=== PATIENT | male | born 1990 | race Caucasian/White ===

== ENCOUNTER 2022-12-18 15:16 | Inpatient (IN) ==
[2022-12-18 19:09] LABS: Basophils # (auto) 0.03 K/uL (0-0.2); Basophils % (auto) 0.4 %; Eosinophils # (auto) 0.35 K/uL (0-0.50); Eosinophils % (auto) 4.1 %; Immature Granulocytes # (auto) 0.02 K/uL (0.01-0.20); Immature Granulocytes % (auto) 0.2 %; Lymphocytes # (auto) 2.23 K/uL (1.2-3.4); Lymphocytes % (auto) 26.4 %; Mean Corpuscular Hemoglobin 32.5 pg (25.0-34.0); Mean Corpuscular Hgb Conc 36.7 g/dL (32.0-36.0); Mean Corpuscular Volume 88.6 fL (80.0-100.0); Mean Platelet Volume 9.5 fL (9.4-12.4); Monocytes # (auto) 0.55 K/uL (0.11-0.59); Monocytes % (auto) 6.5 %; Neutrophils # (auto) 5.26 K/uL (1.40-6.50); Neutrophils % (auto) 62.4 %; Platelet Count 240 K/uL (130-400); RDW Coefficient of Variation 12.1 % (11.5-14.5); RDW Standard Deviation 39.3 fL (36.4-46.3); Red Blood Count 5.53 M/uL (4.70-6.10); White Blood Count 8.44 K/ul (4.8-10.8)
[2022-12-18 19:11] LABS: Appearance Urine Clear (Clear); Bilirubin Urine Negative (Negative); Blood Urine Negative (Negative); Color Urine Yellow; Glucose Urine UA Negative (Negative); Ketones Urine Trace (Negative); Leukocyte Esterase Urine Negative (Negative); Nitrite Urine Negative (Negative); Protein Urine Negative (Negative); Specific Gravity Urine 1.013 (1.000-1.030); Urobilinogen Urine Negative (Negative); pH Urine 7.5 (4.5-7.5)
[2022-12-18 19:22] LABS: Albumin Globulin Ratio 1.8 (0.9-2); Albumin Level 4.9 gm/dl (3.4-5.0); BUN Creatinine Ratio 11.6 (10-20); Bilirubin,Total 0.8 mg/dl (0.2-1.0); Calcium 9.7 mg/dl (8.6-10.3); Creatinine Clr Calc Pharmacy 121.5 ml/min; Est GFR (African American) 134.9 ml/min; Est GFR (Non-African American) 116.4 ml/min; Globulin 2.8 gm/dl (2.5-4.0); Potassium 4.4 mmol/L (3.5-5.1); Total Protein 7.7 gm/dl (6.0-8.3)
--- NOTE | 2022-12-18 20:58 | Emergency Department Note ---
Impression & Plan RLQ abdominal pain, Appendicitis ED Provider Note NAME: LEIDY RICE AGE: 32 SEX: M : 1990 ARRIVES VIA: Walk-In INFORMANT: [Patient] ED PROVIDER(S): [Adrien Bess MD] CHIEF COMPLAINT: Abdominal pain HISTORY OF PRESENT ILLNESS: The patient is a 32-year-old male presents with 2 days of an ache to the right lower quadrant. No pain radiation to the back. He has been having harder bowel movements lately, no diarrhea. No urinary complaints. No fever or nausea or vomiting. The patient has no history of abdominal surgery. He denies trauma to the abdomen. There is no cough or congestion, no shortness of breath. PMHx/PSHx: See Below SOCIAL HISTORY: See Below. PHYSICAL EXAM: GENERAL: Patient is in no acute distress. HEENT: No acute trauma, normocephalic atraumatic, mucous membranes moist, no nasal congestion. NECK: No stridor, no adenopathy, no meningismus, trachea is midline. LUNGS: Clear to auscultation bilaterally, no wheeze, no rhonchi, breath sounds equal. HEART: Without murmurs gallops or rubs, regular rate and rhythm. ABDOMEN: Soft, moderately tender in the right lower quadrant, no abdominal distention. EXTREMITIES: No cyanosis or edema, full range of motion of all the joints without pain or difficulty, no signs for acute trauma. NEUROLOGIC: Oriented x 3, no acute motor or sensory deficits, no focal weakness. SKIN: No rash, no jaundice, no diaphoresis. Groin: No hernia or discomfort with palpation in the groin. DIFFERENTIAL DIAGNOSIS: Appendicitis, diverticulitis, constipation, renal colic, UTI, musculoskeletal discomfort, viral illness, among others. EMERGENCY DEPARTMENT COURSE/PROCEDURES: Prior/Outside records reviewed: None. MEDICAL DECISION MAKING: There is no leukocytosis or concerning anemia. There is a normal platelet count. No renal failure or significant electrolyte abnormality. No concerning liver enzyme elevation. No evidence for pancreatitis. Urinalysis shows some ketones, no infection. Abdominal and pelvis CT shows evidence for acute appendicitis without perforation. On exam, the patient was tender in the right lower quadrant. He did not have peritonitis. He was not febrile or toxic. The patient did not require anything for pain, he was resting comfortably on the ED bed. I spoke to the patient about his findings, I did speak with case management, the on-call surgeon was consulted. DISPOSITION: Patient's presentation and findings warrant surgical consultation. Past Med/Surg History Medical History History of back problems Plantar fasciitis Surgical History (Updated 05/23/22 @ 12:56 by Jessy Steele, LIZBETH) H/O wisdom tooth extraction 2010 Family History (Updated 03/08/22 @ 16:53 by Megha Wong, LIZBETH) Other Unknown family medical history Social History Smoking Status: Current every day smoker Tobacco Type: Cigarettes packs per day: 0.3; Hx Alcohol Use: Yes Alcohol Intake Frequency: Monthly or Less Preferred Language: Frisian marital status: Single current occupational status: employed How many Children do You have: 0 Feels Safe at Home: Yes Diet: regular during the past year weight has: decreased > 10 lbs Allergies Allergies Allergy/AdvReac Type Severity Reaction Status Date / Time No Known Allergies Allergy Verified 03/08/22 15:13 Home Meds Home Medications Medication Instructions Recorded Confirmed cyclobenzaprine 5 mg tablet 5 mg PO TID PRN 05/23/22 Results & Data (ED) Vital Signs Vital Signs - 24 hr 12/18/22 15:34 12/18/22 20:53 Temperature 36.8 C Temperature Source Temporal Artery Scan Pulse Rate 83 Pulse Rate [Finger] 66 Pulse Rhythm [Finger] Regular Pulse Strength [Finger] Normal Respiratory Rate 18 18 Respiratory Effort / Characteristics Non-Labored Non-Labored Spontaneous Respiratory Depth Normal Normal Blood Pressure 132/82 Blood Pressure [Right Arm] 134/79 Blood Pressure Mean 98 Blood Pressure Mean [Right Arm] 97 Pulse Oximetry 97 98 Oxygen Delivery Method Room Air Room Air Sepsis Recent Fever Within 48 Hours No Sepsis New/Unexplained Change in Mental Status No Sepsis Action Taken by Nursing No Action Required Home Medications Current Medication List: was personally reviewed by me Laboratory Data Attestation: I reviewed the patient's lab results. 12/18/22 18:35 12/18/22 18:35 Lab Results 12/18/22 12/18/22 12/18/22 Range/Units 18:35 18:35 18:36 WBC 8.44 (4.8-10.8) K/ul RBC 5.53 (4.70-6.10) M/uL Hgb 18.0 (14.0-18.0) g/dl Hct 49.0 (42.0-52.0) % MCV 88.6 (80.0-100.0) fL MCH 32.5 (25.0-34.0) pg MCHC 36.7 H (32.0-36.0) g/dL RDW Std Deviation 39.3 (36.4-46.3) fL RDW Coeff of John 12.1 (11.5-14.5) % Plt Count 240 (130-400) K/uL MPV 9.5 (9.4-12.4) fL Immature Gran % (Auto) 0.2 % Neut % (Auto) 62.4 % Lymph % (Auto) 26.4 % Steele % (Auto) 6.5 % Eos % (Auto) 4.1 % Baso % (Auto) 0.4 % Neut # (Auto) 5.26 (1.40-6.50) K/uL Lymph # (Auto) 2.23 (1.2-3.4) K/uL Steele # (Auto) 0.55 (0.11-0.59) K/uL Eos # (Auto) 0.35 (0-0.50) K/uL Baso # (Auto) 0.03 (0-0.2) K/uL Immature Gran # (Auto) 0.02 (0.01-0.20) K/uL Sodium 137 (136-145) mmol/L Potassium 4.4 (3.5-5.1) mmol/L Chloride 105 (98-107) mmol/L Carbon Dioxide 27 (21-32) mmol/L Anion Gap 5 (3-11) BUN 10 (6-23) mg/dl Creatinine 0.86 (0.6-1.4) mg/dl Est Cr Clr Drug Dosing 121.5 ml/min Est GFR ( Amer) 134.9 ml/min Est GFR (Non-Af Amer) 116.4 ml/min BUN/Creatinine Ratio 11.6 (10-20) Glucose 84 (70-99(Fasting)) mg/dl Calcium 9.7 (8.6-10.3) mg/dl Total Bilirubin 0.8 (0.2-1.0) mg/dl AST 18 (13-39) U/L ALT 21 (7-52) U/L Alkaline Phosphatase 67 (34-104) U/L Total Protein 7.7 (6.0-8.3) gm/dl Albumin 4.9 (3.4-5.0) gm/dl Globulin 2.8 (2.5-4.0) gm/dl Albumin/Globulin Ratio 1.8 (0.9-2) Lipase 33 (11-82) U/L Urine Color Yellow Urine Appearance Clear (Clear) Urine pH 7.5 (4.5-7.5) Ur Specific [place] 1.013 (1.000-1.030) Urine Protein Negative (Negative) Urine Glucose (UA) Negative (Negative) Urine Ketones Trace H (Negative) Urine Blood Negative (Negative) Urine Nitrite Negative (Negative) Urine Bilirubin Negative (Negative) Urine Urobilinogen Negative (Negative) Ur Leukocyte Esterase Negative (Negative) Administered Medications Discontinued Medications Ioversol (Optiray 320 100ml) 91 ml IV ONCE ONE Stop: 12/18/22 21:02 Last Admin: 12/18/22 21:02 Dose: 91 ml Documented By: PLW Imaging Data Radiologist's Impression: Abdomen/Pelvis CT 12/18/22 19:20 CR Exam(s): CT ABDOMEN + PELVIS With Contrast IV Amt: 91 ml optiray 320 EXAM: CT Abdomen and Pelvis With Intravenous Contrast CLINICAL HISTORY: Reason for exam: RLQ abdominal pain. TECHNIQUE: Axial computed tomography images of the abdomen and pelvis with intravenous contrast. CTDI is 13.13 mGy and DLP is 628.4 mGy-cm. Automated exposure control was utilized for the study. A dose lowering technique was utilized adhering to the principles of ALARA. CONTRAST: Patient received 91 ml optiray 320 of IV contrast COMPARISON: No relevant prior studies available. FINDINGS: Lung bases: Unremarkable. No mass. No consolidation. ABDOMEN: Liver: Unremarkable. No mass. Gallbladder and bile ducts: Unremarkable. No calcified stones. No ductal dilation. Pancreas: Unremarkable. No mass. No ductal dilation. Spleen: Unremarkable. No splenomegaly. Adrenals: Unremarkable. No mass. Kidneys and ureters: 1.5 cm right upper pole renal hypodensity likely representing a cyst. 0.8 cm left upper pole renal hypodensity too small for the density characterization but also likely representing a cyst. Nonobstructing bilateral intrarenal calculi. Stomach and bowel: Diverticulosis without evidence of diverticulitis. No obstruction. PELVIS: Appendix: Small thickening and inflammatory change involving a dilated appendix in the right lower quadrant. No periappendiceal abscess. Bladder: Unremarkable. No mass. Reproductive: Unremarkable as visualized. ABDOMEN and PELVIS: Intraperitoneal space: Unremarkable. No free air. No significant fluid collection. Bones/joints: No acute fracture. No dislocation. Soft tissues: Unremarkable. Vasculature: Unremarkable. No abdominal aortic aneurysm. Lymph nodes: Unremarkable. No enlarged lymph nodes. IMPRESSION: Acute appendicitis. No periappendiceal abscess. Communications: Call Doctor Appendicitis Electronically signed by: Anil Diallo MD 12/18/22 21:33 PM Discharge Plan Visit Data Chief Complaint: Abdominal Pain Stated Complaint: ABD PAIN ED Provider: Adrien Bess Discharge Problem: RLQ abdominal pain, Appendicitis Patient Disposition: Being Evaluated by Surgeon Condition: Good Forms Stand Alone Forms: [facility] [employer] Prescriptions Prescriptions: No Action cyclobenzaprine 5 mg tablet 5 mg PO TID PRN Referrals Referrals: Piero Gleason [Primary Care Provider] -
[2022-12-18] MEDS ORDERED: OPTIRAY 320 100ml IV ONE (21:01)
--- NOTE | 2022-12-18 21:34 | CT Scan Report ---
Exam(s): CT ABDOMEN + PELVIS With Contrast IV Amt: 91 ml optiray 320 EXAM: CT Abdomen and Pelvis With Intravenous Contrast CLINICAL HISTORY: Reason for exam: RLQ abdominal pain. TECHNIQUE: Axial computed tomography images of the abdomen and pelvis with intravenous contrast. CTDI is 13.13 mGy and DLP is 628.4 mGy-cm. Automated exposure control was utilized for the study. A dose lowering technique was utilized adhering to the principles of ALARA. CONTRAST: Patient received 91 ml optiray 320 of IV contrast COMPARISON: No relevant prior studies available. FINDINGS: Lung bases: Unremarkable. No mass. No consolidation. ABDOMEN: Liver: Unremarkable. No mass. Gallbladder and bile ducts: Unremarkable. No calcified stones. No ductal dilation. Pancreas: Unremarkable. No mass. No ductal dilation. Spleen: Unremarkable. No splenomegaly. Adrenals: Unremarkable. No mass. Kidneys and ureters: 1.5 cm right upper pole renal hypodensity likely representing a cyst. 0.8 cm left upper pole renal hypodensity too small for the density characterization but also likely representing a cyst. Nonobstructing bilateral intrarenal calculi. Stomach and bowel: Diverticulosis without evidence of diverticulitis. No obstruction. PELVIS: Appendix: Small thickening and inflammatory change involving a dilated appendix in the right lower quadrant. No periappendiceal abscess. Bladder: Unremarkable. No mass. Reproductive: Unremarkable as visualized. ABDOMEN and PELVIS: Intraperitoneal space: Unremarkable. No free air. No significant fluid collection. Bones/joints: No acute fracture. No dislocation. Soft tissues: Unremarkable. Vasculature: Unremarkable. No abdominal aortic aneurysm. Lymph nodes: Unremarkable. No enlarged lymph nodes. IMPRESSION: Acute appendicitis. No periappendiceal abscess. Communications: Call Doctor Appendicitis Electronically signed by: Anil Diallo MD 12/18/22 21:33 PM
[2022-12-18] MEDS ORDERED: ONDANSETRON INJ 2 MG/ML 2 ML VIAL IV PRN (22:07)
[2022-12-18] MEDS ORDERED: MoRPHine SULFATE 4 MG/ML 1 ML CARP\\VIAL IV PRN (22:07)
--- NOTE | 2022-12-18 22:07 | History & Physical Report ---
Patient was discussed with the surgical PA. I agree with the plan. We will book for laparoscopic appendectomy Date of Service December 18, 2022 Assessment & Plan (1) Appendicitis: Plan: Due to the patient's clinical presentation and findings on imaging he will be admitted to the hospital proceeding as follows: Analgesics to be provided Antiemetics to be provided We will implement n.p.o. status We will hydrate him with IV fluids Serial labs will be followed We will initiate antibiotics in the form of Zosyn We have tentatively planned on performing an appendectomy on 12/19/[address] Roman. At the present time the patient is normotensive without tachycardia or fever. He also does not exhibit leukocytosis Additional recommendations be forthcoming based on operative findings, and his postoperative recovery thereafter SCDs will be used for DVT prevention, no chemical means due to planned surgery The patient be a level 1 full code History of Present Illness Chief Complaint: Abdominal pain Primary Care Provider: Piero Gleason This is a 32-year-old male who presented the emergency department secondary to abdominal pain. Patient notes that the abdominal pain began approximately 2 days ago across his lower abdomen. He does note that the pain is primarily concentrated in the right lower quadrant. He notes that the pain is worse with certain movements and when his abdomen is palpated. He does note that the pain is somewhat improved after he eats. He denies any nausea or vomiting. He denies any fevers, shakes, or chills. He denies any difficulty urinating. The patient does note that since his pain began he has been constipated and and he felt that this initially was the cause of his pain. As the pain did not dean over 2 days he did go [facility] where he was then referred to the emergency department for further evaluation. The patient reports that he does not have any history of prior abdominal surgeries. Since arrival to the hospital the patient has had labs and imaging which independent reviewed. Patient had a CT scan of the abdomen and pelvis. The patient was noted to have some thickening and inflammatory changes of the appendix which appeared to be dilated. There is no evidence of periappendiceal abscess. These findings were concerning for acute appendicitis. Labs include a CBC her white blood cell count, hemoglobin, hematocrit, platelet count were normal. Chemistry profile showed sodium, potassium, BUN, and creatinine were normal. There is no elevation of LFTs or lipase. A urinalysis was not indicative of infection. The patient says that he is an everyday smoker smoking nearly 1/2 pack cigarettes per day. He does state that he is active with his day-to-day life and does not get chest pain or shortness of breath with his daily activities. Since arrival to the emergency department he has not required any analgesics At the time of my interview the patient was resting comfortably in bed he was in no distress. Concerning past medical history he denies any medical problems Concerning past surgical history the patient says that he has had eye surgery and a cyst removed from the back of his neck Concerning social history he smokes 1/2 pack cigarettes per day Concerning family history he does not report any family history of premature coronary artery disease Allergies Allergy/AdvReac Type Severity Reaction Status Date / Time No Known Allergies Allergy Verified 03/08/22 15:13 Home Medications Medication Instructions Recorded Confirmed Type cyclobenzaprine 5 mg tablet 5 mg PO TID PRN 05/23/22 History Past Med/Surg History Medical History History of back problems Plantar fasciitis Surgical History H/O wisdom tooth extraction 2010 Family History Other Unknown family medical history Social History Smoking Status: Current every day smoker Tobacco Type: Cigarettes packs per day: 0.3; Hx Alcohol Use: Yes Alcohol Intake Frequency: Monthly or Less Preferred Language: Thai marital status: Single current occupational status: employed How many Children do You have: 0 Feels Safe at Home: Yes Diet: regular during the past year weight has: decreased > 10 lbs Review of Systems Constitutional: no fever and no chills Ear, Nose, Mouth, Throat: no hearing loss Respiratory: no cough and no dyspnea Cardiovascular: no chest pain Gastrointestinal: as per Subjective / HPI Genitourinary: no dysuria Musculoskeletal: no back pain Integumentary: no rash Neurologic: no localized weakness Physical Exam Constitutional: WD/WN, vitals as above Eyes: no conjunctival abnormality ENMT: Ears: no hearing impairment and no external ear abnormality Mouth: no oropharynx abnormality Neck: trachea midline Respiratory: normal respiratory effort, lungs clear to auscultation Cardiovascular: Rate/Rhythm: regular rate and regular rhythm Vessels: posterior tibial pulses present and radial pulses present Gastrointestinal (Abdomen): Abdomen is soft and nonrigid. It is nondistended. Bowel sounds are present. There is pain with deep palpation in the right lower quadrant McBurney's point. There is no rebound tenderness or guarding Musculoskeletal: No calf tenderness Skin: no rashes Neurologic: moves all extremities Results & Data Results & Data Vital Signs (Past 12 Hours) Vital Signs Temp Pulse Pulse Resp BP BP Pulse Ox 12/18/22 20:53 66 18 134/79 98 12/18/22 15:34 36.8 C 83 18 132/82 97 O2 Del Method 12/18/22 20:53 Room Air 12/18/22 15:34 Room Air PG Care Time/CCT Total # of Minutes Spent Total Time Spent with Patient: Total time spent is greater than 50% in coordination of care (as documented) at patient's floor/unit and/or counseling patient: Coding Level of Care Code 17851 INT INP/OBS CARE 3/75MIN Diagnoses Appendicitis K35.890 Acute appendicitis type: other Appendicitis type: acute appendicitis (1) Appendicitis Acute appendicitis type: other Appendicitis type: acute appendicitis Qualified Code(s): K35.890 - Other acute appendicitis without perforation or gangrene
[2022-12-18] MEDS ORDERED: PIPERACILLIN/TAZOBACTAM 4.5 GM/120 ML BAG IV STA (22:16)
[2022-12-18] MEDS: LACTATED RINGER'S 1,000 ML IV SCH (22:40)
[2022-12-18] MEDS: ACETAMINOPHEN 1,000 MG/100 ML VIAL IV PRN (22:41)
[2022-12-19] MEDS: PIPERACILLIN/TAZOBACTAM 4.5 GM in DEXTROSE 5% 100 ML IV SCH ×3 (04:20→19:45)
[2022-12-19] MEDS: LACTATED RINGER'S 1,000 ML IV SCH ×3 (05:41→16:51)
[2022-12-19 06:29] LABS: Basophils # (auto) 0.03 K/uL (0-0.2); Basophils % (auto) 0.5 %; Eosinophils # (auto) 0.26 K/uL (0-0.50); Eosinophils % (auto) 4.6 %; Hemoglobin 16.2 g/dl (14.0-18.0); Immature Granulocytes # (auto) 0.01 K/uL (0.01-0.20); Immature Granulocytes % (auto) 0.2 %; Lymphocytes # (auto) 1.37 K/uL (1.2-3.4); Lymphocytes % (auto) 24.3 %; Mean Corpuscular Hemoglobin 32.3 pg (25.0-34.0); Mean Corpuscular Hgb Conc 36.8 g/dL (32.0-36.0); Mean Corpuscular Volume 87.8 fL (80.0-100.0); Mean Platelet Volume 9.5 fL (9.4-12.4); Monocytes # (auto) 0.51 K/uL (0.11-0.59); Neutrophils # (auto) 3.46 K/uL (1.40-6.50); Neutrophils % (auto) 61.4 %; Platelet Count 216 K/uL (130-400); RDW Coefficient of Variation 11.8 % (11.5-14.5); Red Blood Count 5.01 M/uL (4.70-6.10); White Blood Count 5.64 K/ul (4.8-10.8)
[2022-12-19 06:42] LABS: Est GFR (African American) 134.9 ml/min; Est GFR (Non-African American) 116.4 ml/min
[2022-12-19 06:43] LABS: BUN Creatinine Ratio 11.6 (10-20); Creatinine Clr Calc Pharmacy 121.5 ml/min
--- NOTE | 2022-12-19 08:18 | Anesthesiology Consultation ---
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 Surgery Operation Date: 12/19/22 08:50 Proposed Procedures p Laparoscopic Appendectomy - Flash Evans DO Height/Weight Height: 5 ft 8 in Weight: 74.4 kg Allergies Allergy/AdvReac Type Severity Reaction Status Date / Time No Known Allergies Allergy Verified 12/18/22 22:44 Medications Home Medications Medication Instructions Recorded Confirmed Last Taken ibuprofen 200 mg tablet (Advil) 400 mg PO Q6H PRN Pain 12/18/22 12/18/22 Unknown Active Medications Generic Name Dose Route Start Last Admin Trade Name Freq PRN Reason Stop Dose Admin Acetaminophen 1,000 mg in 100 mls @ 400 mls/hr 12/18/22 22:07 12/18/22 23:10 Ofirmev IV 12/21/22 22:06 Infused Q8H PRN Infusion Moderate Pain (Scale 4, 5, 6) Lactated Ringer's 1,000 mls @ 125 mls/hr 12/18/22 22:15 12/19/22 05:41 Lr IV 01/17/23 22:14 125 mls/hr .Q8H ALEK Administration Piperacillin Sod/Tazobactam 120 mls @ 30 mls/hr 12/19/22 04:00 12/19/22 08:14 Sod 4.5 gm/ Dextrose IV 12/29/22 03:59 Infused Q8H ALEK Infusion Protocol Past Medical History Medical History History of back problems Plantar fasciitis Past Family History Family History Other Unknown family medical history Past Surgical History Surgical History H/O wisdom tooth extraction 2010 Social History Smoking Status: Current every day smoker Smoking cigarettes per day: 1/2 pack Do You Dip or Chew Tobacco: No Hx Alcohol Use: No Hx Substance Use: No Physical Exam Vital Signs Last Vital Signs Temp 98.1 F 12/19/22 07:59 Pulse 49 L 12/19/22 07:59 Resp 16 12/19/22 07:59 BP 115/66 12/19/22 07:59 Pulse Ox 95 12/19/22 07:59 O2 Del Method Room Air 12/19/22 07:59 Testing Laboratory Results 12/19/22 05:42 12/19/22 05:42 Urine Color Yellow 12/18/22 18:36 Urine Appearance Clear (Clear) 12/18/22 18:36 Urine pH 7.5 (4.5-7.5) 12/18/22 18:36 Ur Specific [place] 1.013 (1.000-1.030) 12/18/22 18:36 Urine Protein Negative (Negative) 12/18/22 18:36 Urine Glucose (UA) Negative (Negative) 12/18/22 18:36 Urine Ketones Trace (Negative) H 12/18/22 18:36 Urine Nitrite Negative (Negative) 12/18/22 18:36 Ur Leukocyte Esterase Negative (Negative) 12/18/22 18:36
[2022-12-19] MEDS ORDERED: NEOSTIGMINE METHYLSULFATE 1 MG/ML 10ML VIAL ONE (11:00)
[2022-12-19] MEDS ORDERED: GLYCOPYRROLATE 0.2 MG/ML VIAL ONE (11:00)
[2022-12-19] MEDS ORDERED: fentaNYL citrate PF 100 MCG/2 ML VIAL ONE ×2 (11:00→14:59)
[2022-12-19] MEDS ORDERED: ONDANSETRON INJ 2 MG/ML 2 ML VIAL ONE (11:00)
[2022-12-19] MEDS ORDERED: MIDAZOLAM HCL 1 MG/ML 2ML VIAL ONE (11:00)
[2022-12-19] MEDS ORDERED: PROPOFOL IV EMULSION 10 MG/ML 20 ML VIAL IV ONE (11:00)
[2022-12-19] MEDS ORDERED: LIDOCAINE 2% 2 ML VIAL/AMP(20MG/ML) INFIL ONE (11:00)
[2022-12-19] MEDS ORDERED: DEXAMETHASONE SOD INJ 4 MG/ML VIAL ONE (11:00)
--- NOTE | 2022-12-19 12:38 | Surgery Progress Note ---
Date of Service December 19, 2022 Assessment & Plan (1) Appendicitis: Plan: The patient will be taken for laparoscopic appendectomy. Details of the procedure been explained to the patient including the risks and benefits. He expressed understanding of this explanation and all of his questions were answered. Consent was obtained. Admission and Anticipated Discharge Date Admission Date: December 18, 2022 Subjective Patient was seen and examined this AM. He feels unchanged compared to admission. Denies nausea vomiting, worsening abdominal pain. Physical Exam Constitutional: healthy appearing; no acute distress, not ill appearing and no altered mental status Respiratory: normal respiratory effort; no respiratory distress, no labored breathing and does not use accessory muscles Gastrointestinal (Abdomen): Abdomen is soft, tender to palpation right lower quadrant. Nondistended, no peritonitis. Results & Data Vital Signs (Past 12 Hours) Vital Signs Temp Pulse Resp BP Pulse Ox O2 Del Method 12/19/22 07:59 36.7 C 49 L 16 115/66 95 Room Air Laboratory Results No leukocytosis Diagnostic Findings CT obtained at admission yesterday revealed acute appendicitis. PG Care Time/CCT Total # of Minutes Spent Total Time Spent with Patient: Total time spent is greater than 50% in coordination of care (as documented) at patient's floor/unit and/or counseling patient: Coding [place] [address] SUB INP/OBS CARE 05/24MIN Patient Type Established History Problem Focused Exam Problem Focused Medical Decision Making Low Complexity Diagnoses Appendicitis K35.890 Acute appendicitis type: other Appendicitis type: acute appendicitis (1) Appendicitis Acute appendicitis type: other Appendicitis type: acute appendicitis Qualified Code(s): K35.890 - Other acute appendicitis without perforation or gangrene
[2022-12-19] MEDS ORDERED: fentaNYL citrate PF 100 MCG/2 ML VIAL IV PRN (12:55)
[2022-12-19] MEDS ORDERED: ATROPINE SULFATE 0.1 MG/ML 10ML SYR IV PRN (12:55)
[2022-12-19] MEDS ORDERED: ePHEDrine sulfate 50 MG/ML AMP IV PRN (12:55)
[2022-12-19] MEDS ORDERED: ONDANSETRON INJ 2 MG/ML 2 ML VIAL IV PRN (12:55)
[2022-12-19] MEDS ORDERED: BUPIVACAINE/EPINEPHRINE 0.5% MPF 1:200,000 30 ML VIAL ONE (13:56)
[2022-12-19] MEDS ORDERED: SUGAMMADEX SODIUM 200 MG/2 ML VIAL IV ONE (14:21)
[2022-12-19] MEDS ORDERED: FLOSEAL HEMOSTATIC MATRIX 5ML TOP ONE (15:22)
--- NOTE | 2022-12-19 16:02 | Operative Report ---
PG Post Operative Report Pre & Post Diagnosis Operation Date: 12/19/22 08:50 Pre-Op Diagnosis: Appendicitis Post-Op Diagnosis: Appendicitis I identified the patient and participated in the time-out.: Yes Procedure Operation Date: 12/19/22 08:50 Actual Procedures p Laparoscopic Appendectomy(Not Applicable) - Flash Evans DO Surgeon Flash Evans DO Theology Professor ROCIO Ambrosio Estimated Blood Loss 7 Findings Consistent with Post-Op Diagnosis Specimens Appendix Drains None Anesthesia Type General Complications None Indications Acute appendicitis Description of Procedure The patient was brought back to the operating room on the day of the procedure and placed on the operating room table in supine position. SCDs were applied to bilateral lower extremities. The patient was connected to cardiac and oxygen monitoring. He was administered general anesthesia and a secure airway was inserted. A Orantes catheter was inserted. The abdomen was prepped and draped in typical sterile fashion and a timeout was conducted. Local anesthetic was injected into the skin and subcutaneous tissue at the infraumbilical area. A small stab incision was made and the abdominal space was accessed using a Veress needle. Intra-abdominal location was confirmed with saline drop test. Using a Visiport with a 5 mm trocar a 5 mm laparoscope and trocar were inserted under direct visualization. Pneumoperitoneum was established to a goal pressure of 15 mmHg. Local anesthetic was injected into the subcutaneous tissues and skin at the suprapubic area and a stab incision was made. A 5 mm trocar was inserted under direct visualization. Similarly a 12 mm trocar was inserted at the left lower quadrant. At the right lower quadrant the cecum was identified the appendix was curled behind the cecum. The appendix was brought into view and the base was dissected bluntly using a [place] dissector. The base of the appendix was stapled using a purple loaded 45 Endo ASHOK stapler. The vasculature within the mesoappendix was taken in the same fashion. The appendix was placed in an Endo Catch bag and removed from the abdomen. The appendix was placed in a labeled container that was sent to pathology for further analysis. The area was inspected for hemostasis. There was a small amount of oozing just from the surrounding peritoneal tissues. This was controlled with gentle cautery. The area was copiously irrigated several times and suctioned. There remained a little bit of general oozing from the mesoappendiceal staple line. This was controlled with cautery. The general peritoneal tissues in this area were very fibrinous and delicate with suctioning. Floseal was used in this area the pelvis was suctioned of thin green fluid and irrigated. Additional irrigant was suctioned from the right upper quadrant. Pneumoperitoneum was evacuated, trocars and instruments were removed. The left lower quadrant incision was closed at the level of the fascia using 0 Vicryl suture. Additional local anesthetic was injected in all 3 suture sites. 3-0 Vicryl suture was used at the left lower quadrant incision to approximate the dermis. 4-0 Vicryl suture was used at each incision to close the skin. The incisions were sealed with Dermabond. The patient tolerated the procedure well. The Orantes catheter was removed, he was awakened from anesthesia and the secured airway was removed. He was then transferred to recovery in stable condition. I attest to the content of the Intraoperative Record and any orders documented therein. Any exceptions are noted below.
--- NOTE | 2022-12-19 16:20 | Anesthesiology Progress Note ---
Date of Service December 19, 2022 Anesthesia Post Procedure Vital Signs Vital Signs: Temp Pulse Pulse Resp BP Pulse Ox O2 Del Method 12/19/22 16:10 87 12 147/78 H 97 Room Air 12/19/22 16:00 76 16 142/80 H 97 Room Air 12/19/22 15:50 97.0 F L 91 H 24 140/78 100 Nasal Cannula 12/19/22 12:45 98.6 F 75 18 127/75 95 Room Air 12/19/22 07:59 98.1 F 49 L 16 115/66 95 Room Air 12/18/22 23:46 97.9 F 52 L 16 137/73 94 Room Air 12/18/22 22:42 69 20 137/75 97 Room Air 12/18/22 20:53 66 18 134/79 98 Room Air O2 Flow Rate 12/19/22 16:10 12/19/22 16:00 12/19/22 15:50 2 12/19/22 12:45 12/19/22 07:59 12/18/22 23:46 12/18/22 22:42 12/18/22 20:53 Pain Intensity Right Lower Abdomen: Pain Intensity: 1 Transfer of Care Handoff Completed per policy Notes Mental Status: alert / awake / arousable and participated in evaluation Patient Amnestic to Procedure: Yes Nausea / Vomiting: adequately controlled Pain: adequately controlled Airway Patency, RR, SpO2: stable & adequate BP & HR: stable & adequate Hydration State: stable & adequate Anesthetic Complications: no major complications apparent and Pt Satisfied with anesthetic care
[2022-12-19] MEDS ORDERED: oxyCODONE HCL IR 5 MG TAB (IMMEDIATE RELEASE) PO PRN (16:38)
[2022-12-19] MEDS ORDERED: MoRPHine SULFATE 4 MG/ML 1 ML CARP\\VIAL IV PRN (16:41)
[2022-12-19] MEDS: ACETAMINOPHEN 1,000 MG/100 ML VIAL IV PRN (18:11)
[2022-12-19] MEDS: oxyCODONE HCL IR 5 MG TAB (IMMEDIATE RELEASE) PO PRN (19:45)
[2022-12-20] MEDS: oxyCODONE HCL IR 5 MG TAB (IMMEDIATE RELEASE) PO PRN (00:40)
[2022-12-20] MEDS: PIPERACILLIN/TAZOBACTAM 4.5 GM in DEXTROSE 5% 100 ML IV SCH (03:56)
[2022-12-20] MEDS: LACTATED RINGER'S 1,000 ML IV SCH (03:58)
--- NOTE | 2022-12-20 08:19 | Surgery Progress Note ---
Date of Service December 20, 2022 Assessment & Plan (1) Appendicitis: Plan POD 1 s/p laparoscopic appendectomy. HD stable and afebrile. Labs have been drawn this am and are pending results. Will F/U. Will consider if discharge will be possible later today pending lab results. May heplock IV if tolerating clears well. Will consider advancing to full liquid diet for lunch pending labs and patient's progress this am. May advance to a low fiber diet at home tomorrow. Please provide a low fiber diet print out. Pain control. Patient is sore. Would like to minimize narcotic use. Prescribe low dose Oxycodone which he may cut in half at home. He may supplement with Extra strength Tylenol as directed on the bottle, do not recommend NSAIDs at this time. Encourage aggressive ambulation. At discharge, he will need specific activity/restriction instructions on proper letterhead or script for his purposes: No repetitive motion using abdominal muscles, no lifting more than 20 pounds for 4 weeks, no strenuous activity such as running, jogging jumping repetitive jol ting or bouncing. No workouts more than walking on a treadmill. Follow up with me in 2 weeks for re-assessment of allowable activities and follow up. Admission and Anticipated Discharge Date Admission Date: December 18, 2022 Subjective Patient seen and examined this am. He c/o gas at the sides of his abdomen and right shoulder. States this is subsiding as he ambulates and passes gas. Denies N/V, fevers or chills. Tolerating clears. Physical Exam Constitutional: healthy appearing; not ill appearing, not in distress and not diaphoretic Respiratory: normal respiratory effort; no respiratory distress, no labored breathing and does not use accessory muscles Gastrointestinal (Abdomen): Percussion/Palpation: abdomen soft; abdomen not rigid Mildly tender at LLQ and incision sites. Incisions well intact, skin glue present. No ecchymosis, erythema or swelling. No signs of infection. Results & Data Vital Signs (Past 12 Hours) Vital Signs Temp Pulse Resp BP Pulse Ox O2 Del Method 12/20/22 07:26 36.7 C 56 L 16 130/75 96 Room Air 12/20/22 04:00 36.6 C 68 16 122/76 97 Room Air 12/19/22 23:00 37.2 C 73 16 124/71 96 Room Air PG Care Time/CCT Total # of Minutes Spent Total Time Spent with Patient: Total time spent is greater than 50% in coordination of care (as documented) at patient's floor/unit and/or counseling patient: Coding Level of Care Code 35561 SUB INP/OBS CARE 1/25MIN Diagnoses Appendicitis K35.890 Acute appendicitis type: other Appendicitis type: acute appendicitis (1) Appendicitis Acute appendicitis type: other Appendicitis type: acute appendicitis Qualified Code(s): K35.890 - Other acute appendicitis without perforation or gangrene
[2022-12-20 08:35] LABS: Basophils # (auto) 0.01 K/uL (0-0.2); Basophils % (auto) 0.1 %; Hematocrit (blood only) 43.2 % (42.0-52.0); Hemoglobin 15.5 g/dl (14.0-18.0); Immature Granulocytes # (auto) 0.05 K/uL (0.01-0.20); Immature Granulocytes % (auto) 0.5 %; Lymphocytes # (auto) 0.95 K/uL (1.2-3.4); Lymphocytes % (auto) 8.7 %; Mean Corpuscular Hgb Conc 35.9 g/dL (32.0-36.0); Mean Corpuscular Volume 89.3 fL (80.0-100.0); Mean Platelet Volume 9.5 fL (9.4-12.4); Monocytes # (auto) 0.68 K/uL (0.11-0.59); Monocytes % (auto) 6.2 %; Neutrophils # (auto) 9.27 K/uL (1.40-6.50); Neutrophils % (auto) 84.5 %; Platelet Count 220 K/uL (130-400); RDW Coefficient of Variation 11.6 % (11.5-14.5); RDW Standard Deviation 37.5 fL (36.4-46.3); Red Blood Count 4.84 M/uL (4.70-6.10); White Blood Count 10.96 K/ul (4.8-10.8)
[2022-12-20 08:59] LABS: BUN Creatinine Ratio 8.5 (10-20); Calcium 8.8 mg/dl (8.6-10.3); Creatinine Clr Calc Pharmacy 127.4 ml/min; Est GFR (African American) 137.5 ml/min; Est GFR (Non-African American) 118.7 ml/min
[2022-12-20 09:09] LABS: Potassium 3.9 mmol/L (3.5-5.1)
--- NOTE | 2022-12-21 13:50 | Discharge Summary ---
Date of Service December 20, 2022 Admission HPI Per Admitting Provider This is a 32-year-old male who presented the emergency department secondary to abdominal pain. Patient notes that the abdominal pain began approximately 2 days ago across his lower abdomen. He does note that the pain is primarily concentrated in the right lower quadrant. He notes that the pain is worse with certain movements and when his abdomen is palpated. He does note that the pain is somewhat improved after he eats. He denies any nausea or vomiting. He denies any fevers, shakes, or chills. He denies any difficulty urinating. The patient does note that since his pain began he has been constipated and and he felt that this initially was the cause of his pain. As the pain did not dean over 2 days he did go to a [facility] where he was then referred to the emergency department for further evaluation. The patient reports that he does not have any history of prior abdominal surgeries. Since arrival to the hospital the patient has had labs and imaging which independent reviewed. Patient had a CT scan of the abdomen and pelvis. The patient was noted to have some thickening and inflammatory changes of the appendix which appeared to be dilated. There is no evidence of periappendiceal abscess. These findings were concerning for acute appendicitis. Labs include a CBC her white blood cell count, hemoglobin, hematocrit, platelet count were normal. Chemistry profile showed sodium, potassium, BUN, and creatinine were normal. There is no elevation of LFTs or lipase. A urinalysis was not indicative of infection. The patient says that he is an everyday smoker smoking nearly 1/2 pack c igarettes per day. He does state that he is active with his day-to-day life and does not get chest pain or shortness of breath with his daily activities. Since arrival to the emergency department he has not required any analgesics At the time of my interview the patient was resting comfortably in bed he was in no distress. Concerning past medical history he denies any medical problems Concerning past surgical history the patient says that he has had eye surgery and a cyst removed from the back of his neck Concerning social history he smokes 1/2 pack cigarettes per day Concerning family history he does not report any family history of premature coronary artery disease Principal Diagnosis acute appendicitis Discharge Exam awake/alert, no distress Respiratory normal respiratory effort Gastrointestinal (Abdomen) Inspection/Auscultation: + abdominal surgical incision (c/d/i with skin glue) Percussion/Palpation: + abdomen tender (mild abby incisional tenderness to palpation) and abdomen soft Discharge Data Allergies Allergy/AdvReac Type Severity Reaction Status Date / Time No Known Allergies Allergy Verified 12/18/22 22:44 Consultations 12/18/22 21:54 ED Decision to Admit Stat Procedures Performed Operation Date: 12/19/22 08:50 Actual Procedures p Laparoscopic Appendectomy(Not Applicable) - Flash Evans DO Ordered Studies 12/18/22 19:20 CT Abd and Pelvis [CT abd pelvis IV con only] Stat Hospital Course (1) Appendicitis: This is a 32yM who presented to the [facility] ED on 12/18/22 with abdominal pain. Workup in the ED showed a WBC of 8.[address] a/p concerning for acute appendicitis. The patient was tender to palpation in the RLQ. Patient made NPO with IVF and booked for the OR. On 12/19 the patient went to the OR with Dr. Evans for a laparoscopic appendectomy. The patient tolerated the proce dure well, see operative report for full details. Post operatively the patient's diet was advanced from clears to full liquids, pain managed on prn meds, and incisions clean/dry/intact. On POD#1 the patient was deemed stable for discharge to home with plans to initiate a low fiber diet the next day. Total Time Total Time Spent Total Time Spent (In Minutes): 10 Discharge Plan Discharge Items Patient Disposition: Home - Self-Care Reason For Visit: APPY Discharge Diagnosis: laparoscopic appendectomy Condition on Discharge: Good Activity: Per Instructions section Lifting: No more than 10 pounds Bathing Comment: may shower starting 12/20/22; no soaking in tubs/pools x 2 weeks Exercise/Sports: Wait until after follow-up appointment Driving/Machine Use: no driving while taking narcotics for pain Non-emergency contact: Surgeon Call non-emergency contact if: you have any medication questions, your pain is worsening, you have a fever, your temperature is above 101.5, your wound has increased redness, your wound has increased drainage and your wound pain has increased Follow-up/Referrals: Piero Gleason [Primary Care Provider] - Flash Evans DO [Physician] - 01/03/23 11:00 am (Please call to schedule follow up in clinic within 2 weeks ) Dietitian Info: continue full liquids today 12/20/22. Start low fiber diet tomorrow 12/21/22 Diet: Full liquid Addtl Attending Provider Instructions: You may purchase extra strenght tylenol over the counter if needed for additional pain control over the next few days. Take per manufacturers instr uctions You have skin glue over your incisions called dermabond. you may shower with this on. It will tend to dissolve and fall off within a couple weeks. Do not pick at the skin glue Take a stool softener if no bowel movement by Sunday. Examples include colace, miralax, dulcolax, or sennakot (purchased over the counter) continue full liquids today 12/20/22. Start low fiber diet tomorrow 12/21/22 if passing gas, if not then stay on full liquid. Pending Studies at Discharge: Yes Studies:: surgical pathology Stand-Alone Forms: My [facility] [employer], Work/School Release, Smoking Cessation Medications and DC Order Prescriptions: New oxycodone 5 mg tablet 2.5 mg PO .[id number] MDD no more than 6 tabs in 24hours PRN (Reason: pain) Qty: 5 0RF Discontinued ibuprofen [Advil] 200 mg Tablet 400 mg PO Q6H PRN (Reason: Pain) Discharge Orders: Discharge Order (Routine); Ordered 12/20/22 Ordered By: Bala Awad/Other Patient Handouts: Low-Fiber Diet Admission Data Admit Date/Time: 12/18/22 22:13 Attending Provider: Flash Evans Admit Provider: Flash vEans Primary Care Provider: Piero Gleason Other Providers: Flash Evans Other Interventions: Discharge Summary Assessment (RN) Last Done: 12/20/22 12:23 Coding Level of Care Code 69199 IN/OBS DISCH 30 MIN/LESS Diagnoses Appendicitis K35.890 Acute appendicitis type: other Appendicitis type: acute appendicitis
== END 2022-12-20 13:23 | disposition home or self-care (01) | DRG 343 ==
LOC: ED 15:16 → 3N 22:13